=== PATIENT | male | born 1945 | race American Indian/Alaskan Native ===

== ENCOUNTER 2019-05-04 11:23 | Emergency (ER) | payer MEDICARE, OTHER ==
--- NOTE | 2019-05-04 11:59 | Emergency Department Report ---
HPI - General Chief Complaint: Fall Time Seen by Provider: 05/04/19 11:46 - HPI HPI: 73-year-old -[place] male presents to the emergency department from his prison facility at [facility] after he had a witnessed ground-level fall. He presents with a small lip laceration, and a small hematoma over the right eye. However the patient has a history of dementia and denies having a fall. He also has a past medical history of hypertension, end-stage renal disease, previous CVA, hyperlipidemia, anemia, BPH, CHF, atrial fibrillation. Patient is on aspirin but is not on blood thinners. He is a poor historian secondary to his condition. Apparently the patient has a history of recurrent falls. ED Past Medical Hx - Past Medical History Previous Medical History?: Yes Hx Hypertension: Yes Hx Congestive Heart Failure: Yes (systolic) Hx Renal Disease: Yes Hx Dementia: Yes Additional medical history: vit D deficiency. hyperlipidemia. hypo-osmolality. hyponatremia. hyperkalemia. afib. aphasia follwing cerebral infarction. dementia without behavior disturbance. metabolic encephalopathy. gout. altered mental status. [facility] use of anticoagulants. PTSD. gastrointestinal hemorrhage. benign protstatic hyperplasia. hx of falling. anemia. lack of coordination - Medications Home Medications: Home Medications Medication Instructions Recorded Confirmed Last Taken Type Sulfamethoxazole/Trimethoprim 1 each PO BID #10 tablet 05/04/19 Unknown Rx [Bactrim DS TAB] ED Review of Systems ROS: Stated complaint: FALL(GROUND LEVEL) Other details as noted in HPI Comment: Unobtainable due to pts medical conditions Physical Exam - Physical Exam Physical Exam: GENERAL: The patient is well-developed well-nourished. HENT: Normocephalic. Patient has moist mucous membranes. EYES: Extraocular motions are intact. Pupils equal reactive to light bilaterally. NECK: Supple. Trachea is midline. CHEST/LUNGS: Clear to auscultation. There is no respiratory distress noted. HEART/CARDIOVASCULAR: Regular. There is no tachycardia. There is no murmur. ABDOMEN: Abdomen is soft, nontender. Patient has normal bowel sounds. There is no abdominal distention. SKIN: Skin is warm and dry. There is a small non-expanding hematoma just above the right eyebrow. There is a small right lower lip laceration that does not involve the vermilion border. NEURO: The patient is awake, but confused. Mostly nonverbal but did say no and yes. Withdraws from painful stimuli. MUSCULOSKELETAL: There is no tenderness or deformity. There is no evidence of acute injury. ED Course - Consultations Consultation #1: I spoke with the patient's fiber optic assembler, Dr. Calvo, who will arrange for the patient to get dialysis on Friday. We discussed the patient's chest x-ray, presentation, labs, and he agreed that it was appropriate for discharge for outpatient follow-up for dialysis. However he did ask that 30 g of Kayexalate be given for the potassium level of 5.3. 05/05/19 07:27 ED Medical Decision Making - Lab Data Result diagrams: 05/04/19 12:22 05/04/19 12:22 - EKG Data -: EKG Interpreted by Me EKG shows normal: sinus rhythm (PACs), axis, intervals, QRS complexes (LVH), ST- T waves Rate: normal - EKG Data When compared to previous EKG there are: previous EKG unavailable Interpretation: LVH - Radiology Data Radiology results: report reviewed, image reviewed interpreted by me: X-ray of the pelvis does not show any fracture, dislocation or any acute process. Chest x-ray shows some pulmonary vascular congestion but no obvious pneumonia or overt pleural effusions. CT HEAD WITHOUT CONTRAST HISTORY: fall,head injury. TECHNIQUE: Axial imaging performed from the skull apex through the skull base without the use of contrast. All CT scans at this location are performed using CT dose reduction for ALARA by means of automated exposure control. COMPARISON: None FINDINGS: Parenchyma: No acute intracranial hemorrhage or parenchymal abnormality.. Mild hypoattenuation throughout the white matter is noted and consistent with chronic microvascular ischemic disease. Ventricles: There is mild diffuse brain atrophy with commensurate ventricular enlargement which is likely age appropriate. Soft tissues: Soft tissues including the orbits appear normal. Bones: No acute osseous abnormality. Sinuses: Sinuses and mastoid air cells are clear. IMPRESS ION: No acute abnormality. Senescent changes. CT CERVICAL SPINE WITHOUT CONTRAST INDICATION: fall. TECHNIQUE: Axial imaging performed through the whole spine without the use of contrast. Sagittal and coronal reconstructed images were also reviewed. All CT scans at this location are performed using CT dose reduction for ALARA by means of automated exposure control. COMPARISON: None FINDINGS: Alignment: Spinal alignment is normal. Bones: There is no acute osseous abnormality. Moderate multilevel discogenic DJD is present. Soft tissues: No acute or significant incidental soft tissue abnormality. IMPRESSION: No acute abnormality. Cervical spondylosis. CT FACIAL BONES WITHOUT CONTRAST INDICATION : fall, facial injury. TECHNIQUE: Axial imaging performed through the face with reconstructed images also reviewed. Sagittal and coronal reformatted images. All CT scans at this location are performed using CT dose reduction for ALARA by means of automated exposure control. COMPARISON: None FINDINGS: The facial bones are intact. The paranasal sinuses and mastoid air cells are well-aerated. The orbital cavities are intact. The skull base and visualized brain are unremarkable. Facial soft tissues are within normal limits. Poor dentition is noted. IMPRESSION: No acute abnormality. - Medical Decision Making This patient came from his prison after he had a witnessed fall prior to arrival. He has a small right lower lip laceration that does not involve the vermilion border and a non-expanding hematoma just over the right eyebrow. A CT scan of the head, cervical spine and facial bones without contrast were completed that did not show any fractures, dislocations or any acute processes. A chest x-ray was done that shows some pulmonary vascular congestion but no overt pleural effusions or pneumonia, no rib fractures. A pelvic x-ray was done that also does not show any fracture or dislocation. His labs were mostly unremarkable. He had a potassium of 5.3 and he has renal failure consistent with his end-stage renal disease on hemodialysis. He has some anemia of chronic kidney disease. Patient's fiber optic assembler is aware and will arrange for the patient to have dialysis done tomorrow, Friday. As the lip laceration does not involve the vermilion border, is small, and since the area is very vascular, no sutures were placed and this should heal well over the next few days. He has been given a prescription for some antibiotics so he does not develop any infection. The facility has been instructed to return this patient to the emergency Department with any worsening of his symptoms or any acute distress. - Differential Diagnosis skull fracture, brain bleed, facial fractures, contusion, laceration Critical Care Time: No Critical care attestation.: If time is entered above; I have spent that time in minutes in the direct care of this critically ill patient, excluding procedure time. ED Disposition Clinical Impression: ESRD (end stage renal disease) on dialysis Fall Qualifiers: Encounter type: initial encounter Qualified Code(s): W19.XXXA - Unspecified fall, initial encounter Lip laceration Qualifiers: Encounter type: initial encounter Qualified Code(s): S01.511A - Laceration wi thout foreign body of lip, initial encounter Traumatic hematoma of forehead Qualifiers: Encounter type: initial encounter Qualified Code(s): S00.83XA - Contusion of other part of head, initial encounter Head injury Qualifiers: Encounter type: initial encounter Qualified Code(s): S09.90XA - Unspecified injury of head, initial encounter Disposition: DC-01 TO HOME OR SELFCARE Is pt being admited?: No Condition: Stable Instructions: Laceration (ED), Fall Prevention for Older Adults (ED), Contusion in Adults (ED), End-Stage Kidney Disease (ED) Additional Instructions: This patient needs to follow-up with his primary care physician in the next few days. He needs to continue with his normal dialysis regiment. Take the antibiotics as prescribed. The lip laceration should heal on its own in the next week. However, he will need to return to the emergency department or see a medical/health intensive care unit registered nurse if he develops any signs or symptoms of infection such as increased swelling, redness, development of fever, increased pain. Please take fall precautions. Return to the emergency Department with any worsening of his symptoms or any acute distress. Prescriptions: Sulfamethoxazole/Trimethoprim [Bactrim DS TAB] 1 each PO BID #10 tablet Referrals: PCP, Your [Other] - 2-3 Days Time of Disposition: 14:52
[2019-05-04 12:50] LABS: Hematocrit 33.7 % (35.5-45.6); Hemoglobin 10.5 gm/dl (11.8-15.2); Mean Corpuscular HGB Conc 31 % (32-34); Mean Corpuscular Volume 101 fl (84-94); Platelet Count 154 K/mm3 (140-440); Red Blood Count 3.33 M/mm3 (3.65-5.03); Red Cell Distribution Width 17.3 % (13.2-15.2)
[2019-05-04 13:00] LABS: Partial Thromboplastin Time 28.6 Sec. (24.2-36.6)
--- NOTE | 2019-05-04 13:07 | XRay Report ---
CHEST 1 VIEW INDICATION: fall. COMPARISON: None. FINDINGS: Support devices: Right-sided central venous catheter tip projects at the SVC/right atrial junction. P ercutaneous lead is noted over the mediastinum. Heart: Mildly enlarged. Lungs/Pleura: Asymmetric, predominantly perihilar pulmonary opacities are noted, greater on the right . There may be a trace right pleural effusion. No pneumothorax. No displaced rib fractures are identified on this single, portable view. IMPRESSION: 1. Nonspecific predominantly perihilar bilateral pulmonary opacities, right greater than left. This c ould be asymmetric pulmonary edema. Cardiac silhouette is enlarged. There is a trace right pleural ef fusion. 2. Given the asymmetry of the perihilar/hilar opacities in the right lung, radiographic follow-up is recommended. Signer Name: Harry Lea MD Signed: 05/04/2019 1:03 PM Workstation Name: [id number]
[2019-05-04 13:11] LABS: INR 1.36 (0.87-1.13)
[2019-05-04 13:13] LABS: Albumin 4.2 g/dL (3.9-5)
[2019-05-04 13:44] LABS: Total Cells Counted 100
[2019-05-04 13:45] LABS: Anisocytosis Few; Poikilocytosis Few
[2019-05-04 13:46] LABS: Ovalocytes Few; Platelet Estimate Consistent w Auto
--- NOTE | 2019-05-04 13:55 | XRay Report ---
HISTORY:fall COMPARISON: None. TECHNIQUE: AP views were obtained FINDINGS: Bones: No fracture or dislocation. Joint spaces: Maintained. Soft tissues: No significant abnormality. Additional findings: None. IMPRESSION: 1. No significant abnormality. Signer Name: Valentin Izquierdo MD Signed: 05/04/2019 1:51 PM Workstation Name: [id number]
--- NOTE | 2019-05-04 14:07 | Cat Scan Report ---
CT HEAD WITHOUT CONTRAST HISTORY: fall,head injury. TECHNIQUE: Axial imaging performed from the skull apex through the skull base without the use of con trast. All CT scans at this location are performed using CT dose reduction for ALARA by means of aut omated exposure control. COMPARISON: None FINDINGS: Parenchyma: No acute intracranial hemorrhage or parenchymal abnormality.. Mild hypoattenuation thro ughout the white matter is noted and consistent with chronic microvascular ischemic disease. Ventricles: There is mild diffuse brain atrophy with commensurate ventricular enlargement which is l ikely age appropriate. Soft tissues: Soft tissues including the orbits appear normal. Bones: No acute osseous abnormality. Sinuses: Sinuses and mastoid air cells are clear. IMPRESSION: No acute abnormality. Senescent changes. Signer Name: Jasson Vick Jr, MD Signed: 05/04/2019 2:02 PM Workstation Name: [id number]
--- NOTE | 2019-05-04 14:31 | Cat Scan Report ---
CT CERVICAL SPINE WITHOUT CONTRAST INDICATION: fall. TECHNIQUE: Axial imaging performed through the whole spine without the use of contrast. Sagittal an d coronal reconstructed images were also reviewed. All CT scans at this location are performed using CT dose reduction for ALARA by means of automated exposure control. COMPARISON: None FINDINGS: Alignment: Spinal alignment is normal. Bones: There is no acute osseous abnormality. Moderate multilevel discogenic DJD is present. Soft tissues: No acute or significant incidental soft tissue abnormality. IMPRESSION: No acute abnormality. Cervical spondylosis. Signer Name: Jasson Vick Jr, MD Signed: 05/04/2019 2:27 PM Workstation Name: [id number]
--- NOTE | 2019-05-04 14:42 | Cat Scan Report ---
CT FACIAL BONES WITHOUT CONTRAST INDICATION : fall, facial injury. TECHNIQUE: Axial imaging performed through the face with reconstructed images also reviewed. Sagitta l and coronal reformatted images. All CT scans at this location are performed using CT dose reduction for ALARA by means of automated exposure control. COMPARISON: None FINDINGS: The facial bones are intact. The paranasal sinuses and mastoid air cells are well-aerated. The orbital cavities are intact. The skull base and visualized brain are unremarkable. Facial soft t issues are within normal limits. Poor dentition is noted. IMPRESSION: No acute abnormality. Signer Name: Jasson Vick Jr, MD Signed: 05/04/2019 2:38 PM Workstation Name: [id number]
[2019-05-04] MEDS ORDERED: TETANUS,DIPH,PERTUSS(ACELL) VACCINE 0.5 ML SYRINGE IM ONE (14:47)
[2019-05-04 15:59] VITALS: BP 109/69
[2019-05-04] MEDS ORDERED: SODIUM POLYSTYRENE 15 GM/60 ML ORAL LIQD PO ONE (16:17)
== END 2019-05-04 17:54 | disposition home or self-care (01) ==
LOC: ED 11:23
DX: S01.511A Laceration without foreign body of lip, initial encounter (principal); N18.6 End stage renal disease; S00.83XA Contusion of other part of head, initial encounter; S09.90XA Unspecified injury of head, initial encounter; E11.22 Type 2 diabetes mellitus with diabetic chronic kidney disease; I13.2 Hypertensive heart and chronic kidney disease with heart failure and with stage 5 chronic kidney disease, or end stage renal disease; I50.20 Unspecified systolic (congestive) heart failure; F03.90 Unspecified dementia, unspecified severity, without behavioral disturbance, psychotic disturbance, mood disturbance, and anxiety; Z79.899 Other long term (current) drug therapy; W18.39XA Other fall on same level, initial encounter; Y93.89 Activity, other specified; Y92.89 Other specified places as the place of occurrence of the external cause; Y99.8 Other external cause status
CPT/HCPCS: 36415; 70450; 70486; 71045; 72125; 72170; 80053; 85007; 85025; 85610; 85730; 86850; 86900; 86901; 90471; 90715; 93005; 93010

== ENCOUNTER 2019-06-28 21:46 | Emergency (ER) | payer OTHER ==
--- NOTE | 2019-06-28 22:56 | Emergency Department Report ---
ED General Adult HPI - General Chief complaint: Syncope Stated complaint: SYNCOPAL EPISODE Time Seen by Provider: 06/28/19 22:47 Source: family, EMS (EMS records not available for review at this time), RN notes reviewed, old records reviewed Mode of arrival: Stretcher Limitations: Altered Mental Status, Physical Limitation - History of Present Illness Initial comments: This is a 74-year-old gentleman. This patient is not known to myself previously. His primary care doctor is Dr. Alvarez. Past medical history is extensive, including end-stage renal disease on hemodialysis, generalized debility and weakness, hypertension, high cholesterol, stroke, dementia, pulmonology. Aspirin close documentation, typically gets hemodialysis Friday, , S , makes a little bit of urine, and has been followed by Dr. Perez of nephrology. The patient is nonverbal at this time. He is accompanied by a granddaughter and another family member, neither of whom are familiar with the details of his history today. Initially, there was concern that the patient may have had an episode of syncope while at his correction, after eating. However, nursing team contacted His correction of record, and clarified this point. Apparently, the patient had an episode of hypoxia, which corrected with supplemental oxygen. As per nursing documentation: Spoke with Bhakti Rhoades RN at [facility] [phone] to get more information as to what caused pt to be brought to the ED. Nurse Ya states pt was given dinner and pt was not eating so she proceeded to take pts VS. Pts o2 saturation was 85% on room air, nurse placed pt on 2 liters NC for 2 minutes then o2 sat dropped to 83% while on 2 liters o2 NC. For this reason pt was sent to ED. Nurse stated "Pt said 2 or 3 words which is normal for him." Nurse stated pt did not have a syncopal episode. Patient is nonverbal at this time, not able to describe further contacts, or nature of his history of present illness. His granddaughter, Ms. Maya Nova, is not familiar with the details of what happened to him today. No additional information is available at this time. -: This evening Radiation: other Severity scale (0 -10): 0 Quality: other Consistency: other Improves with: other Worsens with: other Associated Symptoms: other - Related Data Home Medications Medication Instructions Recorded Confirmed Last Taken Aspirin [Aspirin BABY CHEW TAB] 81 mg PO QDAY 06/29/19 06/29/19 Unknown AtorvaSTATin [Lipitor] 40 mg PO QHS 06/29/19 06/29/19 Unknown Citalopram [celeXA] 20 mg PO QDAY 06/29/19 06/29/19 Unknown Finasteride 5 mg PO DAILY 06/29/19 06/29/19 Unknown Gabapentin [Neurontin] 300 mg PO QHS 06/29/19 06/29/19 Unknown ISOSORBIDE MONOnitrate [Imdur ER] 60 mg PO QDAY 06/29/19 06/29/19 Unknown Ondansetron [Zofran Odt] 4 mg PO Q8HR PRN 06/29/19 06/29/19 Unknown Pantoprazole [Protonix] 40 mg PO QDAY 06/29/19 06/29/19 Unknown Polyethylene Glycol 3350 [Miralax 17 gm PO QDAY PRN 06/29/19 06/29/19 Unknown 3350] Tamsulosin [Flomax] 0.4 mg PO QDAY 06/29/19 06/29/19 Unknown Torsemide [Demadex] 20 mg PO DAILY 06/29/19 06/29/19 Unknown allopurinoL [Zyloprim] 100 mg PO QDAY 06/29/19 06/29/19 Unknown benazepril (NF) [Benazepril (Nf)] 40 mg PO DAILY 06/29/19 06/29/19 Unknown calcitrioL [Rocaltrol] 1 mcg PO QDAY 06/29/19 06/29/19 Unknown hydrALAZINE [Apresoline TAB] 10 mg PO Q8H 06/29/19 06/29/19 Unknown risperiDONE [RisperDAL] 0.5 mg PO QHS 06/29/19 06/29/19 Unknown Allergies Allergy/AdvReac Type Severity Reaction Status Date / Time No Known Allergies Allergy Unverified 05/04/19 11:28 ED Review of Systems ROS: Stated complaint: SYNCOPAL EPISODE Other details as noted in HPI Comment: Unobtainable due to pts medical conditions ED Past Medical Hx - Past Medical History Hx Hypertension: Yes Hx Congestive Heart Failure: Yes (systolic) Hx Renal Disease: Yes Hx Dementia: Yes Additional medical history: vit D deficiency. hyperlipidemia. hypo-osmolality. hyponatremia. hyperkalemia. afib. aphasia follwing cerebral infarction. dementia without behavior disturbance. metabolic encephalopathy. gout. alter ed mental status. senior care use of anticoagulants. PTSD. gastrointestinal hemorrhage. benign protstatic hyperplasia. hx of falling. anemia. lack of coordination - Surgical History Past Surgical History?: No - Social History Smoking Status: Never Smoker Substance Use Type: None - Medications Home Medications: Home Medications Medication Instructions Recorded Confirmed Last Taken Type Aspirin [Aspirin BABY CHEW TAB] 81 mg PO QDAY 06/29/19 06/29/19 Unknown History AtorvaSTATin [Lipitor] 40 mg PO QHS 06/29/19 06/29/19 Unknown History Citalopram [celeXA] 20 mg PO QDAY 06/29/19 06/29/19 Unknown History Finasteride 5 mg PO DAILY 06/29/19 06/29/19 Unknown History Gabapentin [Neurontin] 300 mg PO QHS 06/29/19 06/29/19 Unknown History ISOSORBIDE MONOnitrate [Imdur ER] 60 mg PO QDAY 06/29/19 06/29/19 Unknown History Ondansetron [Zofran Odt] 4 mg PO Q8HR PRN 06/29/19 06/29/19 Unknown History Pantoprazole [Protonix] 40 mg PO QDAY 06/29/19 06/29/19 Unknown History Polyethylene Glycol 3350 [Miralax 17 gm PO QDAY PRN 06/29/19 06/29/19 Unknown History 3350] Tamsulosin [Flomax] 0.4 mg PO QDAY 06/29/19 06/29/19 Unknown History Torsemide [Demadex] 20 mg PO DAILY 06/29/19 06/29/19 Unknown History allopurinoL [Zyloprim] 100 mg PO QDAY 06/29/19 06/29/19 Unknown History benazepril (NF) [Benazepril (Nf)] 40 mg PO DAILY 06/29/19 06/29/19 Unknown History calcitrioL [Rocaltrol] 1 mcg PO QDAY 06/29/19 06/29/19 Unknown History hydrALAZINE [Apresoline TAB] 10 mg PO Q8H 06/29/19 06/29/19 Unknown History risperiDONE [RisperDAL] 0.5 mg PO QHS 06/29/19 06/29/19 Unknown History ED Physical Exam - General Limitations: Altered Mental Status, Physical Limitation General appearance: in no apparent distress, other (patient is awake, does not follow commands. He is not speaking) - Head Head exam: Present: atraumatic, normocephalic - Eye Eye exam: Present: normal appearance - ENT ENT exam: Present: normal exam, mucous membranes moist, normal external ear exam - Neck Neck exam: Present: normal inspection, full ROM. Absent: tenderness, meningismus - Respiratory Respiratory exam: Present: decreased breath sounds, other (right-sided dialysis access catheter is noted, without redness, pus or streaking). Absent: respira tory distress - Cardiovascular Cardiovascular Exam: Present: regular rate, normal rhythm, systolic murmur (there is a 2/6 systolic murmur heard best at right and left second intercostal space). Absent: diastolic murmur, rubs, gallop - GI/Abdominal GI/Abdominal exam: Present: soft. Absent: distended, tenderness, guarding, rebound, rigid, pulsatile mass - Rectal Rectal exam: Present: deferred - Extremities Exam Extremities exam: Present: normal inspection, pedal edema, other (2+ pulses noted in the bilateral upper and lower extremities. There is no long bony tenderness. The pelvis is stable. The muscular compartments are soft. There is no palpable cord. There is no redness, pus or streaking.). Absent: calf tenderness - Back Exam Back exam: Absent: tenderness, CVA tenderness (R), CVA tenderness (L), paraspinal tenderness, vertebral tenderness - Neurological Exam Neurological exam: Present: altered, other (the patient is awake. The patient is nonverbal. The patient is not following commands. He is protecting his airway at this time.) - Skin Skin exam: Present: warm, dry, intact, normal color. Absent: rash ED Course Vital Signs 06/28/19 06/28/19 06/28/19 22:05 22:06 22:16 Temperature 98.8 F Pulse Rate 81 79 Respiratory 14 20 Rate Blood Pressure 161/95 Blood Pressure 146/79 [Left] O2 Sat by Pulse 97 99 Oximetry 06/28/19 06/28/19 06/28/19 22:30 22:46 23:17 Temperature Pulse Rate 76 80 78 Respiratory 21 25 H 11 L Rate Blood Pressure 143/79 143/79 143/79 Blood Pressure [Left] O2 Sat by Pulse 99 100 98 Oximetry 06/28/19 06/28/19 06/28/19 23:30 23:38 23:39 Temperature 98.4 F Pulse Rate 80 81 Respiratory 22 16 Rate Blood Pressure 151/94 Blood Pressure 151/94 [Left] O2 Sat by Pulse 100 98 Oximetry 06/28/19 06/29/19 06/29/19 23:46 00:00 00:27 Temperature Pulse Rate 73 68 83 Respiratory 23 21 Rate Blood Pressure 151/94 138/74 143/79 Blood Pressure [Left] O2 Sat by Pulse 100 100 Oximetry 06/29/19 06/29/19 06/29/19 00:32 00:46 01:00 Temperature Pulse Rate 79 79 76 Respiratory 16 23 22 Rate Blood Pressure 138/74 151/84 Blood Pressure [Left] O2 Sat by Pulse 96 98 Oximetry 06/29/19 06/29/19 06/29/19 01:16 01:24 01:30 Temperature Pulse Rate 77 74 Respiratory 19 20 22 Rate Blood Pressure 151/84 147/86 Blood Pressure [Left] O2 Sat by Pulse 96 95 98 Oximetry 06/29/19 06/29/19 06/29/19 02:22 02:30 02:46 Temperature Pulse Rate 79 72 80 Respiratory 21 23 12 Rate Blood Pressure 147/86 147/86 147/86 Blood Pressure [Left] O2 Sat by Pulse 93 99 90 Oximetry 06/29/19 03:00 Temperature Pulse Rate 83 Respiratory 27 H Rate Blood Pressure 137/95 Blood Pressure [Left] O2 Sat by Pulse 82 L Oximetry - Reevaluation(s) Reevaluation #1: 06/28/19 23:52 Differential diagnosis, including but not limited to: Fluid overload, pulmonary embolism, pneumonia, pneumothorax, dementia, urinary tract infection, hyperkalem ia, azotemia, uremia, intracranial lesion, intra-abdominal lesion Assessment and plan: 73-year-old gentleman who is demented and a poor historian, awake, protecting his airway, with no complaints, sent to the emergency room for evaluation of hypoxia. Patient is placed on supplemental oxygen. Given that patient is unable to provide details of history of present illness, he cannot be risk stratified by d-dimer alone, which is elevated anyhow, and we'll therefore proceed to CT angiogram of the chest. Discussed with nephrology on- call, Dr. Ferrari, who will arrange for hemodialysis in the morning. CT scan of the brain negative, x-ray the chest is reviewed and appreciated. Reevaluation #2: 06/29/19 00:53 D-dimer elevated. Nuclear medicine study ordered. Myself and nursing teen unable to obtain peripheral 20-gauge IV access. 20-gauge external jugular IV placed for myself with no difficulty. Reevaluation #3: 06/29/19 03:16 Nuclear medicine study is low probability for pulmonary embolism. On room air, patient saturating at 96-100%. He spoke to nursing team. He's been in the ER for almost 6 hours without clinical decompensation. At this point in time, he does not meet criteria for hospitalization. Nephrology consultation will be canceled. He can follow up with his outpatient wood router. Please note that patient did have a few documented episodes of low pulse ox, however, this was a poor waveform, when the pulse oximetry was connected to the patient's finger. When the pulse oximeter was attached to the patient's ear, he had a consistently appropriate and good waveform, saturating 95-100% on room air. 06/29/19 03:18 - EJ/Peripheral Line Neck R Time Out Performed: Yes Indications: nurses unable to establis Skin Cleansed in Sterile Fashion: Yes Size: 20 Dressing Placed: Tegaderm Patient Tolerated Procedure: well ED Medical Decision Making - Lab Data Result diagrams: 06/28/19 22:59 06/28/19 22:47 Vital Signs 06/28/19 06/28/19 06/28/19 22:06 23:38 23:39 Temperature 98.8 F 98.4 F Pulse Rate 81 81 Respiratory 14 16 Rate Blood Pressure 146/79 151/94 [Left] O2 Sat by Pulse 98 Oximetry Lab Results 06/28/19 06/28/19 06/28/19 Range/Units 22:47 22:47 22:59 WBC 5.2 (4.5-11.0) K/mm3 RBC 4.07 (3.65-5.03) M/mm3 Hgb 12.8 (11.8-15.2) gm/dl Hct 39.6 (35.5-45.6) % MCV 97 H (84-94) fl MCH 31 (28-32) pg MCHC 32 (32-34) % RDW 16.7 H (13.2-15.2) % Plt Count 128 L (140-440) K/mm3 PT 16.5 H (12.2-14.9) Sec. INR 1.31 H (0.87-1.13) D-Dimer 504.61 H (0-234) ng/mlDDU Sodium 136 L (137-145) mmol/L Potassium 4.5 (3.6-5.0) mmol/L Chloride 99.7 (98-107) mmol/L Carbon Dioxide 20 L (22-30) mmol/L Anion Gap 21 mmol/L BUN 30 H (9-20) mg/dL Creatinine 7.3 H (0.8-1.5) mg/dL Estimated GFR 9 ml/min BUN/Creatinine Ratio 4 % Glucose 98 (75-100) mg/dL Calcium 9.4 (8.4-10.2) mg/dL Total Bilirubin 0.60 (0.1-1.2) mg/dL AST 52 H (5-40) units/L ALT 13 (7-56) units/L Alkaline Phosphatase 61 (35-129) units/L Ammonia (25-60) umol/L Total Protein 6.6 (6.3-8.2) g/dL Albumin 3.5 L (3.9-5) g/dL Albumin/Globulin Ratio 1.1 % // Range/Units 22:59 WBC (4.5-11.0) K/mm3 RBC (3.65-5.03) M/mm3 Hgb (11.8-15.2) gm/dl Hct (35.5-45.6) % MCV (84-94) fl MCH (28-32) pg MCHC (32-34) % RDW (13.2-15.2) % Plt Count (140-440) K/mm3 PT (12.2-14.9) Sec. INR (0.87-1.13) D-Dimer (0-234) ng/mlDDU Sodium (137-145) mmol/L Potassium (3.6-5.0) mmol/L Chloride (98-107) mmol/L Carbon Dioxide (22-30) mmol/L Anion Gap mmol/L BUN (9-20) mg/dL Creatinine (0.8-1.5) mg/dL Estimated GFR ml/min BUN/Creatinine Ratio % Glucose (75-100) mg/dL Calcium (8.4-10.2) mg/dL Total Bilirubin (0.1-1.2) mg/dL AST (5-40) units/L ALT (7-56) units/L Alkaline Phosphatase (35-129) units/L Ammonia 23.0 L (25-60) umol/L Total Protein (6.3-8.2) g/dL Albumin (3.9-5) g/dL Albumin/Globulin Ratio % - EKG Data -: EKG Interpreted by Ca EKG shows normal: sinus rhythm Rate: normal - EKG Data 06/28/19 23:54 The EKG today shows some motion artifact, however, this is a sinus rhythm, within normal axis, QTC is 529 ms, there is left ventricular hypertrophy, there is no endorsement of chest pain, the EKG is not consistent with ST elevation myocardial infarction. It furthermore appears to be unchanged from her prior EKG from 05/04/2019, sinus arrhythmia appears to be chronic - Radiology Data Radiology results: report reviewed, image reviewed Print Report Referring Physician: MAMTA NAJERA Patient Name: MARY BETH ROCKWELL Date of : 1945 Sex: Male Report Date: 2019-06-28 Report Status: Finalized Findings [facility] [address] [place] [address] XRay Report Signed Patient: MARY BETH ROCKWELL MR#: [id number] : 1945 Acct:[id number] Age/Sex: 73 / M ADM Date: 06/28/19 Loc: ED Attending Dr: Ordering Physician: MAMTA NAJERA MD Date of Service: 06/28/19 Procedure(s): XR chest 1V ap Accession Number(s): [id number] cc: MAMTA NAJERA MD Fluoro Time In Minutes: CHEST 1 VIEW INDICATION / CLINICAL INFORMATION: syncopy. COMPARISON: 05/04/2019 FINDINGS: SUPPORT DEVICES: Stable, satisfactory device positioning. HEART / MEDIASTINUM: Cardiac silhouette remains enlarged but stable. Pulmonary arteries are prominent suggesting pulmonary arterial hypertension. LUNGS / PLEURA: No significant pulmonary or pleural abnormality. No pneumothorax. ADDITIONAL FINDINGS: No significant additional findings. IMPRESSION: 1. No acute pulmonary disease. 2. Stable cardiomegaly. 3. Prominent pulmonary arteries suggesting pulmonary arterial hypertension. Signer Name: Laine James MD Signed: 06/28/2019 10:56 PM Workstation Name: [id number] Transcribed By: JR Dictated By: Laine James MD Electronically Authenticated By: Laine James MD Signed Date/Time: 06/28/192255 DD/ 53 Print Report Referring Physician: MAMTA NAJERA Patient Name: MARY BETH ROCKWELL Date of : 1945 Sex: Male Report Date: 2019-06-28 Report Status: [place] [address] Cat Scan Report Signed Patient: MARY BETH ROCKWELL MR#: [id number] : 1945 Acct:[id number] Age/Sex: 73 / M ADM Date: 06/28/19 Loc: ED Attending Dr: Ordering Physician: MAMTA NAJERA MD Date of Service: 06/28/19 Procedure(s): CT head/brain wo con Accession Number(s): [id number] cc: MAMTA NAJERA MD CT HEAD WITHOUT CONTRAST INDICATION: syncope TECHNIQUE: Axial slices were obtained through the head. Coronal and sagittal reformatted images were obtained. COMPARISON: 05/04/2019 FINDINGS: There is no intracranial hemorrhage or extra-axial fluid collection. There is atrophy and microangiopathy. There is no mass lesion or midline shift. No acute territorial infarct is identified. Bone windows demonstrate no acute osseous abnormality. Paranasal sinuses and mastoid air cells appear clear. TECHNIQUE: All CT scans at this facility use dose modulation, iterative reconstruction, automated exposure control, weight based dosing, when appropriate, to reduce radiation dose to as low as reasonably achievable. IMPRESSION: 1. No acute intracranial abnormality. There is atrophy and microangiopathy Signer Name: Michael Magaña MD Signed: 06/28/2019 11:36 PM Workstation Name: [id number] Critical care attestation.: If time is entered above; I have spent that time in minutes in the direct care of this critically ill patient, excluding procedure time. ED Disposition Clinical Impression: ESRD (end stage renal disease), Dementia, General medical exam Disposition: DC/TX-70 ANOTHER TYPE HLTHCARE Is pt being admited?: No Does the pt Need Aspirin: No Condition: Stable Additional Instructions: Continue outpatient medications. Follow-up with primary care doctor or wood router within the next 2-3 days. Please return to emergency room Runaway with new, worsening or different symptoms, or symptoms not present on the initial emergency room evaluation. Time of Disposition: 03:19 (d/c back to correction)
--- NOTE | 2019-06-28 23:00 | XRay Report ---
CHEST 1 VIEW INDICATION / CLINICAL INFORMATION: syncopy. COMPARISON: 05/04/2019 FINDINGS: SUPPORT DEVICES: Stable, satisfactory device positioning. HEART / MEDIASTINUM: Cardiac silhouette remains enlarged but stable. Pulmonary arteries are prominent suggesting pulmonary arterial hypertension. LUNGS / PLEURA: No significant pulmonary or pleural abnormality. No pneumothorax. ADDITIONAL FINDINGS: No significant additional findings. IMPRESSION: 1. No acute pulmonary disease. 2. Stable cardiomegaly. 3. Prominent pulmonary arteries suggesting pulmonary arterial hypertension. Signer Name: Laine James MD Signed: 06/28/2019 10:56 PM Workstation Name: [id number]
[2019-06-28 23:22] LABS: Hematocrit 39.6 % (35.5-45.6); Hemoglobin 12.8 gm/dl (11.8-15.2); Mean Corpuscular HGB Conc 32 % (32-34); Mean Corpuscular Volume 97 fl (84-94); Platelet Count 128 K/mm3 (140-440); Red Blood Count 4.07 M/mm3 (3.65-5.03); Red Cell Distribution Width 16.7 % (13.2-15.2)
[2019-06-28 23:33] LABS: INR 1.31 (0.87-1.13)
--- NOTE | 2019-06-28 23:40 | Cat Scan Report ---
CT HEAD WITHOUT CONTRAST INDICATION: syncope TECHNIQUE: Axial slices were obtained through the head. Coronal and sagittal reformatted images were obtained. COMPARISON: 05/04/2019 FINDINGS: There is no intracranial hemorrhage or extra-axial fluid collection. There is atrophy and microangiop athy. There is no mass lesion or midline shift. No acute territorial infarct is identified. Bone windows demonstrate no acute osseous abnormality. Paranasal sinuses and mastoid air cells appear clear. TECHNIQUE: All CT scans at this facility use dose modulation, iterative reconstruction, automated ex posure control, weight based dosing, when appropriate, to reduce radiation dose to as low as reasonab ly achievable. IMPRESSION: 1. No acute intracranial abnormality. There is atrophy and microangiopathy Signer Name: Michael Magaña MD Signed: 06/28/2019 11:36 PM Workstation Name: [id number]
[2019-06-28 23:42] LABS: Albumin 3.5 g/dL (3.9-5); Calcium 9.4 mg/dL (8.4-10.2)
--- NOTE | 2019-06-28 23:59 | Cat Scan Report ---
CT abdomen pelvis wo con INDICATION: unexplained syncope ams. TECHNIQUE: All CT scans at this location are performed using the following dose modulation technique: Automated exposure control. Helical slices were obtained through the abdomen and pelvis. No contrast is adminis tered. COMPARISON: None available. FINDINGS: Abdomen: The heart is enlarged. Cystic changes noted in the lower lungs bilaterally. The liver, splee n, pancreas, adrenal glands show no acute abnormality. Atherosclerotic calcifications are noted in th e aorta, mesenteric vessels, renal arteries and iliac arteries. There are calcifications noted in the region of the susan hepatis which I suspect are atherosclerotic. There is an IVC filter. There is a small fat-containing ventral hernia above the umbilicus. Pelvis: Right common iliac artery measures 1.8 cm and the left common iliac artery measures 1.9 cm. 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 The left inte rnal iliac artery is also aneurysmally dilated measuring 1.8 cm. Atherosclerotic calcifications are noted. There is no obstruction or inflammation. The appendix is un remarkable. On review of bone windows, there is a compression fracture of the L2 vertebral body. No retropulsed f ragments are seen. There is sclerotic change and L2 and I suspect that this is chronic. IMPRESSION: 1. There is no obstruction, inflammation, or free air. There are no abnormal fluid collections. There is atherosclerotic disease. 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 There is an IVC filter. Hypodensities in the kidneys are likely cysts. There is a small fat-containing ventral hernia Heart is enlarged. There is a very small right pleural effusion Signer Name: Michael Magaña MD Signed: 06/28/2019 11:55 PM Workstation Name: [id number]
[2019-06-29 00:01] LABS: Bilirubin,Urine NEG (Negative); Blood,Urine MOD (Negative); Color,Urine Yellow (Yellow); Urobilinogen,Urine < 2.0 mg/dL (<2.0)
[2019-06-29] MEDS ORDERED: SODIUM CHLORIDE 0.9% 100 ML IV PRN (00:04)
--- NOTE | 2019-06-29 02:38 | Nuclear Medicine Report ---
NUCLEAR MEDICINE VENTILATION/PERFUSION LUNG SCAN INDICATION: Shortness of breath TECHNIQUE: 14.2 mCi of Xenon-133 were given by inhalation. 5.2 mCi of Tc 99m MAA were given by IV. FINDINGS: Comparison with chest radiograph from 06/28/2019. There is a small unmatched perfusion defect in the left upper lobe. No other perfusion defects are id entified. IMPRESSION: Low probability for pulmonary embolism. Signer Name: Michael Magaña MD Signed: 06/29/2019 2:34 AM Workstation Name: [id number]
[2019-06-29 04:02] VITALS: BP 138/75
== END 2019-06-29 04:26 | disposition other institution (70) ==
LOC: ED 21:46
DX: F03.90 Unspecified dementia, unspecified severity, without behavioral disturbance, psychotic disturbance, mood disturbance, and anxiety (principal); I13.2 Hypertensive heart and chronic kidney disease with heart failure and with stage 5 chronic kidney disease, or end stage renal disease; N18.6 End stage renal disease; I50.9 Heart failure, unspecified; E78.5 Hyperlipidemia, unspecified; Z99.2 Dependence on renal dialysis; Z98.890 Other specified postprocedural states; Z79.899 Other long term (current) drug therapy
CPT/HCPCS: 36415; 36556; 70450; 71045; 74176; 78582; 80053; 81001; 82140; 84443; 85027; 85379; 85610; 93005; 93010; 99285; A9540; A9558; 80320; G0480

== ENCOUNTER 2019-08-23 07:57 | Emergency (ER) | payer MEDICARE, OTHER ==
--- NOTE | 2019-08-23 08:09 | Emergency Department Report ---
HPI - General Time Seen by Provider: 08/23/19 08:04 - HPI HPI: Room 2 The patient is a 74-year-old male present with a chief complaint of cardiac arrest. Per EMS the patient's last known well time was 04:30. Patient was found unresponsive. EMS arrived on scene at 07:25 to find the patient in asystole. The patient was intubated using a Mateo airway and ACLS protocols were initiated. Upon arrival to the ED the Mateo airway was removed and the patient was intubated with an 8.0 ET tube by myself using glidescope ED Past Medical Hx - Past Medical History Hx Hypertension: Yes Hx Congestive Heart Failure: Yes (systolic) Hx Renal Disease: Yes Hx Dementia: Yes Additional medical history: vit D deficiency. hyperlipidemia. hypo-osmolality. hyponatremia. hyperkalemia. afib. aphasia follwing cerebral infarction. dementia without behavior disturbance. metabolic encephalopathy. gout. altered mental status. 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 PTSD. gastrointestinal hemorrhage. benign protstatic hyperplasia. hx of falling. anemia. lack of coordination - Social History Smoking Status: Never Smoker Substance Use Type: None - Medications Home Medications: Home Medications Medication Instructions Recorded Confirmed Last Taken Type Aspirin [Aspirin BABY CHEW TAB] 81 mg PO QDAY 06/29/19 06/29/19 Unknown History AtorvaSTATin [Lipitor] 40 mg PO QHS 06/29/19 06/29/19 Unknown History Citalopram [celeXA] 20 mg PO QDAY 06/29/19 06/29/19 Unknown History Finasteride 5 mg PO DAILY 06/29/19 06/29/19 Unknown History Gabapentin [Neurontin] 300 mg PO QHS 06/29/19 06/29/19 Unknown History ISOSORBIDE MONOnitrate [Imdur ER] 60 mg PO QDAY 06/29/19 06/29/19 Unknown History Ondansetron [Zofran Odt] 4 mg PO Q8HR PRN 06/29/19 06/29/19 Unknown History Pantoprazole [Protonix] 40 mg PO QDAY 06/29/19 06/29/19 Unknown History Tamsulosin [Flomax] 0.4 mg PO QDAY 06/29/19 06/29/19 Unknown History Torsemide [Demadex] 20 mg PO DAILY 06/29/19 06/29/19 Unknown History allopurinoL [Zyloprim] 100 mg PO QDAY 06/29/19 06/29/19 Unknown History benazepril (NF) [Benazepril (Nf)] 40 mg PO DAILY 06/29/19 06/29/19 Unknown History calcitrioL [Rocaltrol] 1 mcg PO QDAY 06/29/19 06/29/19 Unknown History hydrALAZINE [Apresoline TAB] 10 mg PO Q8H 06/29/19 06/29/19 Unknown History polyethylene glycoL 3350 [Miralax 17 gm PO QDAY PRN 06/29/19 06/29/19 Unknown History 3350] risperiDONE [RisperDAL] 0.5 mg PO QHS 06/29/19 06/29/19 Unknown History ED Review of Systems ROS: Stated complaint: CARDIAC ARREST Other details as noted in HPI Comment: Unobtainable due to pts medical conditions Physical Exam - Physical Exam Physical Exam: GENERAL: The patient is well-developed well-nourished male lying on stretcher receiving chest compressions and being bagged via [employer]. [] HEENT: Normocephalic. Atraumatic. NECK: Trachea midline CHEST/LUNGS: No spontaneous respirations HEART/CARDIOVASCULAR: Asystole ABDOMEN: There is no abdominal distention. SKIN: There is no rash. There is no edema. There is no diaphoresis. NEURO: GCS 3 T MUSCULOSKELETAL: There is no evidence of acute injury. ED Medical Decision Making - Differential Diagnosis Cardiac arrest Critical care attestation.: If time is entered above; I have spent that time in minutes in the direct care of this critically ill patient, excluding procedure time. ED Disposition Clinical Impression: Cardiac arrest Disposition: DC-20 Is pt being admited?: No Does the pt Need Aspirin: No Condition: Poor Time of Disposition: 08:07 (Patient )
== END 2019-08-23 14:30 ==
LOC: ED 07:57
DX: I46.9 Cardiac arrest, cause unspecified (principal); I10 Essential (primary) hypertension; I50.9 Heart failure, unspecified; E78.5 Hyperlipidemia, unspecified
CPT/HCPCS: 31500